=== PATIENT | male | born 1950 | race Caucasian/White ===

== ENCOUNTER 2017-11-15 15:14 | Inpatient (IN) ==
[2017-11-15] MEDS ORDERED: 0.9 % Sodium Chloride 500 ML IVC ONE (15:41)
[2017-11-15 16:16] LABS: Bilirubin,Urine Negative (Negative); Blood,Urine Trace-lysed (Negative); Clarity,Urine Clear (Clear); Color,Urine Yellow (Yellow); Glucose,Urine (UA) >=1000 mg/dL (Normal); Ketones,Urine 15 mg/dL (Negative); Leukocyte Esterase,Urine Negative (Negative); Nitrite,Urine Negative (Negative); PH,Urine 7.5 pH Units (5.0-8.0); Protein,Urine 100 mg/dL (Neg-Trace); Specific Gravity,Urine 1.015 (1.010-1.025); Urobilinogen,Urine Normal (Normal)
[2017-11-15] MEDS ORDERED: Insulin Regular, Human 100 UNIT/ML SQ ONE (16:20)
--- NOTE | 2017-11-15 16:20 | Emergency Department Note ---
Disposition Referrals: NONE,PCP [Primary Care Provider] - Fever HPI - General Chief Complaint: ED General Medical Stated Complaint: Diabetic emergency Time Seen by Provider: 11/15/17 15:26 Source: EMS Limitations: altered mental status, age - Related Data Home Medications Medication Instructions Recorded Confirmed Unable To Obtain [Unable to Obtain] 11/15/17 11/15/17 Allergies Allergy/AdvReac Type Severity Reaction Status Date / Time Unable to Assess Allergy Unverified 11/15/17 15:25 Fever PMH - Past Medical History Medical history: Reports: non-contributory Psychiatric history: Reports: other - Social History Smoking Status: Unknown if ever smoked Alcohol use: Reports: none, unknown Drug use: Reports: unknown Physical Exam - General Limitations: altered mental status, age General appearance: alert Course Vital Signs Temperature 98 F 11/15/17 15:17 Pulse Rate 118 11/15/17 15:17 Respiratory Rate 18 11/15/17 15:17 Blood Pressure 145/84 11/15/17 15:17 O2 Sat by Pulse Oximetry 97 11/15/17 15:17 Temperature 98 F 11/15/17 15:17 Pulse Rate 118 11/15/17 15:17 Respiratory Rate 18 11/15/17 15:17 Blood Pressure 145/84 11/15/17 15:17 O2 Sat by Pulse Oximetry 97 11/15/17 15:17 Oxygen Delivery Oxygen Delivery Room Air Fever - Lab Data Lab Results 11/15/17 11/15/17 11/15/17 Range/Units 15:29 15:30 16:00 POC Glucose 517 H* 528 H* (70-99) mg/dL Ur Drug Screen Interp See Below
--- NOTE | 2017-11-15 16:21 | Emergency Department Note ---
Disposition Clinical Impression: Hyperglycemia Cellulitis Qualifiers: Site of cellulitis: extremity Site of cellulitis of extremity: lower extremity Laterality: unspecified laterality Qualified Code(s): L03.119 - Cellulitis of unspecified part of limb Disposition: Admitted As Inpatient General Adult HPI - General Chief complaint: ED General Medical Stated complaint: Diabetic emergency Time Seen by Provider: 11/15/17 15:26 Source: patient, EMS Mode of arrival: EMS Limitations: no limitations Nursing Notes Reviewed: Yes Vital Signs Reviewed: Yes - History of Present Illness HPI Narrative: Patient presents to the ED via EMS for evaluation of hyperglycemia and altered mental status. Per EMS patient was pulled over by law enforcement for driving erratically and suspicion of reckless driving when he was found to be confused. EMS was called and he had a fingerstick glucose of 544. He was given an IV fluid bolus and brought to the ED. They report that he was only oriented to name. On arrival here patient tells me only that he feels "tired". He is a diabetic and has high blood pressure but is not currently on medication for either condition. He is oriented to name place and time. He denies any chest pain, shortness of breath, lightheadedness, dizziness, abdominal pain, nausea or vomiting. No fever or chills. His lower legs were noted to be red and warm which he states been going on for a few weeks. He has not seen anyone about this as he has no primary care doctor currently. He denies any drug use. On arrival here fingerstick glucose is 517. Pain Scale: 0 - Related Data Home Medications Medication Instructions Recorded Confirmed Unable To Obtain [Unable to Obtain] 11/15/17 11/15/17 Allergies Allergy/AdvReac Type Severity Reaction Status Date / Time No Known Allergies Allergy Verified 11/15/17 18:15 Constitutional: Denies: fever, chills, weakness, weight change Eyes: Denies: eye pain, eye discharge, vision change ENT ED: Denies: ear pain, throat pain, dental pain, hearing loss, epistaxis, congestion, dysphagia Cardiovascular: Denies: chest pain, palpitations, dyspnea on exertion, edema, syncope Respiratory: Denies: cough, dyspnea, wheezes, hemoptysis, stridor Gastrointestinal: Denies: abdominal pain, nausea, vomiting, diarrhea, constipation, hematemesis, melena, hematochezia Genitourinary: Denies: urgency, dysuria, frequency, hematuria Musculoskeletal: Denies: back pain, neck pain, arthralgia, myalgia Integumentary: Reports: as per HPI. Denies: rash, abrasion, lesions Neurological: Denies: headache, weakness, numbness, paresthesias, confusion, abnormal gait, vertigo Psychiatric: Denies: anxiety, depression, suicidal thoughts, homicidal thoughts , auditory hallucinations, visual hallucinations Endocrine: Denies: fatigue Hematological/Lymphatic: Denies: easy bleeding, easy bruising Allergic/Immunologic: Denies: facial swelling, urticaria Past Medical History - Past Medical History Medical history: Reports: non-contributory Psychiatric history: Reports: other - Social History Smoking Status: Unknown if ever smoked Smokeless Tobacco Status: No Alcohol use: Reports: none, unknown Drug use: Reports: unknown Physical Exam - General Limitations: no limitations General appearance: alert, in no apparent distress - Head Head exam: atraumatic, normocephalic, normal inspection - Eye Eye exam: Present: normal appearance, PERRL, EOMI - ENT ENT exam: normal exam, normal oropharynx, mucous membranes moist - Neck Neck exam: Present: normal inspection, full ROM, trachea midline - Chest Chest inspection: Present: normal inspection, symmetric chest wall rise - Respiratory Respiratory exam: Present: normal lung sounds bilaterally - Cardiovascular Cardiovascular exam: Present: regular rate, normal rhythm, normal heart sounds - Abdominal Exam Abdominal exam: Present: soft, Non-Tender. Absent: tenderness, distention, guarding, rebound, rigidity - Extremities Exam Extremities exam: Present: normal capillary refill, pedal edema (1-2+ bilaterally) - Expanded Lower Extremity Exam Knee exam: Present: normal inspection, full ROM Lower leg exam: Present: swelling, erythema (warmth and swelling bilaterally with areas of weeping). Absent: tenderness Ankle exam: Present: normal inspection, full ROM Foot/toe exam: Present: normal inspection, full ROM Neurovascular/Tendon exam: Absent: motor deficit, sensory deficit, tendon deficit - Back Exam Back exam: Present: normal inspection, full ROM. Absent: tenderness - Neurological Exam Neurological exam: Present: alert, oriented X3 - Psychiatric Psychiatric exam: Present: normal affect, normal mood - Skin Skin exam: Present: warm, dry, intact, normal color Course Course Narrative: Patient presents to the ED via EMS with report of hyperglycemia and altered mental status. On arrival here he is not altered but is hyperglycemic. Exam findings are concerning for bilateral extremity lower cellulitis. We will give IV fluids, insulin and obtain additional lab work. - Reevaluation(s) Reevaluation #1: Laboratory studies did not show evidence of DKA. Glucoses come down into the 300s with IV fluids and a small dose of insulin. He has been started on antibiotics. Discussed with him my concern for cellulitis and need for admission for better control of the infection as well as the blood pressure and diabetes and he is in agreement. Will contact the hospitalist. Reevaluation #2: Patient has been accepted by the hospitalist on-call, Dr. Garcia. Vital Signs Temperature 98 F 11/15/17 15:17 Pulse Rate 118 11/15/17 15:17 Respiratory Rate 18 11/15/17 15:17 Blood Pressure 145/84 11/15/17 15:17 O2 Sat by Pulse Oximetry 97 11/15/17 15:17 Temperature 98.6 F 11/16/17 04:26 Pulse Rate 95 11/16/17 04:26 Respiratory Rate 17 11/16/17 04:26 Blood Pressure 158/93 11/16/17 04:26 O2 Sat by Pulse Oximetry 92 11/16/17 04:26 Oxygen Delivery Oxygen Delivery Room Air Medical Decision Making - Medical Records Medical records reviewed: Yes I reviewed the patient's medical records. - Lab Data Lab results reviewed: Yes I reviewed the patient's lab results. Result diagrams: 11/15/17 16:10 11/15/17 16:10 Lab Results 11/15/17 11/15/17 11/15/17 Range/Units 15:29 15:30 15:57 WBC (4.3-11.1) K/mcL RBC (4.19-5.50) M/mcL Hgb (12.9-16.9) g/dL Hct (37.5-50.1) % MCV (83.0-100.0) fL MCH (28.0-33.3) pg MCHC (31.6-35.5) g/dL RDW (11.5-14.5) % Plt Count (140-400) K/mcL MPV (9.4-12.4) fL Immature Gran % (0-4) % Seg Neutrophils % % Lymphocytes % % Monocytes % % Eosinophils % % Basophils % % Neutrophils # (1.6-8.9) K/mcL Lymphocytes # (0.6-4.6) K/mcL Monocytes # (0.0-1.3) K/mcL Eosinophils # (0.0-0.6) K/mcL Basophils # (0.0-0.2) K/mcL VBG pH (7.32-7.42) pH Units VBG pCO2 (41-51) mmHg VBG pO2 (25-50) mmHg VBG HCO3 (21-27) mEq/L Sodium (136-145) mEq/L Potassium (3.5-5.1) mEq/L Chloride (98-107) mEq/L Carbon Dioxide (23-29) mEq/L BUN (8-23) mg/dL Creatinine (0.70-1.30) mg/dL Est GFR ( Amer) (> 60) Est GFR (Non-Af Amer) (> 60) BUN/Creatinine Ratio (6-26) Glucose (70-105) mg/dL POC Glucose 517 H* 528 H* (70-99) mg/dL Est Mean Plasma Glucose mg/dl Hemoglobin A1c ( - 5.6) % Calculated Osmolality (280-300) Lactic Acid (0.5-2.2) mmol/L Calcium (8.6-10.3) mg/dL Beta-Hydroxybutyric Acd (0.02-0.27) mmol/L Urine Color Yellow (Yellow) Urine Clarity Clear (Clear) Urine pH 7.5 (5.0-8.0) pH Units Ur Specific [place] 1.015 (1.010-1.025) Urine Protein 100 H (Neg-Trace) mg/dL Urine Glucose (UA) >=1000 H (Normal) mg/dL Urine Ketones 15 H (Negative) mg/dL Urine Blood Trace-lysed H (Negative) Urine Nitrite Negative (Negative) Urine Bilirubin Negative (Negative) Urine Urobilinogen Normal (Normal) mg/dL Ur Leukocyte Esterase Negative (Negative) Urine Microscopic RBC 3-5 H (0-3) per hpf Urine Microscopic WBC 0-3 (0-3) per hpf Ur Squamous Epith Cells Few (None-Few) per lpf Ur Culture Indicated? NO (NO) Urine Opiates Screen (Aedavc=586) ng/mL Ur Oxycodone Screen (Cutoff= 100) ng/mL Ur Barbiturates Screen (Trzlbq=232) ng/mL Ur Phencyclidine Scrn (Cutoff=25) ng/mL Ur Amphetamines Screen (Mcaiqe=0052) ng/mL U Benzodiazepines Scrn (Bezvsy=024) ng/mL Urine Cocaine Screen (Cutoff= 300) ng/mL U Marijuana (THC) Screen (Cutoff = 50) ng/mL Ur Drug Screen Interp 11/15/17 11/15/17 11/15/17 Range/Units 16:00 16:10 16:10 WBC 7.3 (4.3-11.1) K/mcL RBC 4.18 L (4.19-5.50) M/mcL Hgb 12.7 L (12.9-16.9) g/dL Hct 36.4 L (37.5-50.1) % MCV 87.1 (83.0-100.0) fL MCH 30.4 (28.0-33.3) pg MCHC 34.9 (31.6-35.5) g/dL RDW 11.5 (11.5-14.5) % Plt Count 205 (140-400) K/mcL MPV 11.2 (9.4-12.4) fL Immature Gran % 0.3 (0-4) % Seg Neutrophils % 80.7 % Lymphocytes % 7.5 % Monocytes % 8.2 % Eosinophils % 2.3 % Basophils % 1.0 % Neutrophils # 5.9 (1.6-8.9) K/mcL Lymphocytes # 0.6 (0.6-4.6) K/mcL Monocytes # 0.6 (0.0-1.3) K/mcL Eosinophils # 0.2 (0.0-0.6) K/mcL Basophils # 0.1 (0.0-0.2) K/mcL VBG pH (7.32-7.42) pH Units VBG pCO2 (41-51) mmHg VBG pO2 (25-50) mmHg VBG HCO3 (21-27) mEq/L Sodium 132 L (136-145) mEq/L Potassium 3.5 (3.5-5.1) mEq/L Chloride 98 (98-107) mEq/L Carbon Dioxide 27 (23-29) mEq/L BUN 22 (8-23) mg/dL Creatinine 1.04 (0.70-1.30) mg/dL Est GFR ( Amer) > 60 (> 60) Est GFR (Non-Af Amer) > 60 (> 60) BUN/Creatinine Ratio 21 (6-26) Glucose 539 H* (70-105) mg/dL POC Glucose (70-99) mg/dL Est Mean Plasma Glucose mg/dl Hemoglobin A1c ( - 5.6) % Calculated Osmolality 302 H (280-300) Lactic Acid (0.5-2.2) mmol/L Calcium 8.7 (8.6-10.3) mg/dL Beta-Hydroxybutyric Acd (0.02-0.27) mmol/L Urine Color (Yellow) Urine Clarity (Clear) Urine pH (5.0-8.0) pH Units Ur Specific [place] (1.010-1.025) Urine Protein (Neg-Trace) mg/dL Urine Glucose (UA) (Normal) mg/dL Urine Ketones (Negative) mg/dL Urine Blood (Negative) Urine Nitrite (Negative) Urine Bilirubin (Negative) Urine Urobilinogen (Normal) mg/dL Ur Leukocyte Esterase (Negative) Urine Microscopic RBC (0-3) per hpf Urine Microscopic WBC (0-3) per hpf Ur Squamous Epith Cells (None-Few) per lpf Ur Culture Indicated? (NO) Urine Opiates Screen Negative (Ouhtvi=546) ng/mL Ur Oxycodone Screen Negative (Cutoff= 100) ng/mL Ur Barbiturates Screen Negative (Fggjqy=442) ng/mL Ur Phencyclidine Scrn Negative (Cutoff=25) ng/mL Ur Amphetamines Screen Negative (Rbmglm=8461) ng/mL U Benzodiazepines Scrn Negative (Nwkwyg=671) ng/mL Urine Cocaine Screen Negative (Cutoff= 300) ng/mL U Marijuana (THC) Screen Negative (Cutoff = 50) ng/mL Ur Drug Screen Interp See Below 11/15/17 11/15/17 11/15/17 Range/Units 16:10 16:10 16:10 WBC (4.3-11.1) K/mcL RBC (4.19-5.50) M/mcL Hgb (12.9-16.9) g/dL Hct (37.5-50.1) % MCV (83.0-100.0) fL MCH (28.0-33.3) pg MCHC (31.6-35.5) g/dL RDW (11.5-14.5) % Plt Count (140-400) K/mcL MPV (9.4-12.4) fL Immature Gran % (0-4) % Seg Neutrophils % % Lymphocytes % % Monocytes % % Eosinophils % % Basophils % % Neutrophils # (1.6-8.9) K/mcL Lymphocytes # (0.6-4.6) K/mcL Monocytes # (0.0-1.3) K/mcL Eosinophils # (0.0-0.6) K/mcL Basophils # (0.0-0.2) K/mcL VBG pH (7.32-7.42) pH Units VBG pCO2 (41-51) mmHg VBG pO2 (25-50) mmHg VBG HCO3 (21-27) mEq/L Sodium (136-145) mEq/L Potassium (3.5-5.1) mEq/L Chloride (98-107) mEq/L Carbon Dioxide (23-29) mEq/L BUN (8-23) mg/dL Creatinine (0.70-1.30) mg/dL Est GFR ( Amer) (> 60) Est GFR (Non-Af Amer) (> 60) BUN/Creatinine Ratio (6-26) Glucose (70-105) mg/dL POC Glucose (70-99) mg/dL Est Mean Plasma Glucose 378 mg/dl Hemoglobin A1c 14.8 H ( - 5.6) % Calculated Osmolality (280-300) Lactic Acid 1.1 (0.5-2.2) mmol/L Calcium (8.6-10.3) mg/dL Beta-Hydroxybutyric Acd 0.77 H (0.02-0.27) mmol/L Urine Color (Yellow) Urine Clarity (Clear) Urine pH (5.0-8.0) pH Units Ur Specific [place] (1.010-1.025) Urine Protein (Neg-Trace) mg/dL Urine Glucose (UA) (Normal) mg/dL Urine Ketones (Negative) mg/dL Urine Blood (Negative) Urine Nitrite (Negative) Urine Bilirubin (Negative) Urine Urobilinogen (Normal) mg/dL Ur Leukocyte Esterase (Negative) Urine Microscopic RBC (0-3) per hpf Urine Microscopic WBC (0-3) per hpf Ur Squamous Epith Cells (None-Few) per lpf Ur Culture Indicated? (NO) Urine Opiates Screen (Dfmrzp=726) ng/mL Ur Oxycodone Screen (Cutoff= 100) ng/mL Ur Barbiturates Screen (Ncbuhp=556) ng/mL Ur Phencyclidine Scrn (Cutoff=25) ng/mL Ur Amphetamines Screen (Kpeirf=2108) ng/mL U Benzodiazepines Scrn (Qljfln=389) ng/mL Urine Cocaine Screen (Cutoff= 300) ng/mL U Marijuana (THC) Screen (Cutoff = 50) ng/mL Ur Drug Screen Interp 11/15/17 Range/Units 16:49 WBC (4.3-11.1) K/mcL RBC (4.19-5.50) M/mcL Hgb (12.9-16.9) g/dL Hct (37.5-50.1) % MCV (83.0-100.0) fL MCH (28.0-33.3) pg MCHC (31.6-35.5) g/dL RDW (11.5-14.5) % Plt Count (140-400) K/mcL MPV (9.4-12.4) fL Immature Gran % (0-4) % Seg Neutrophils % % Lymphocytes % % Monocytes % % Eosinophils % % Basophils % % Neutrophils # (1.6-8.9) K/mcL Lymphocytes # (0.6-4.6) K/mcL Monocytes # (0.0-1.3) K/mcL Eosinophils # (0.0-0.6) K/mcL Basophils # (0.0-0.2) K/mcL VBG pH 7.43 H (7.32-7.42) pH Units VBG pCO2 43 (41-51) mmHg VBG pO2 167 H (25-50) mmHg VBG HCO3 28 H (21-27) mEq/L Sodium (136-145) mEq/L Potassium (3.5-5.1) mEq/L Chloride (98-107) mEq/L Carbon Dioxide (23-29) mEq/L BUN (8-23) mg/dL Creatinine (0.70-1.30) mg/dL Est GFR ( Amer) (> 60) Est GFR (Non-Af Amer) (> 60) BUN/Creatinine Ratio (6-26) Glucose (70-105) mg/dL POC Glucose (70-99) mg/dL Est Mean Plasma Glucose mg/dl Hemoglobin A1c ( - 5.6) % Calculated Osmolality (280-300) Lactic Acid (0.5-2.2) mmol/L Calcium (8.6-10.3) mg/dL Beta-Hydroxybutyric Acd (0.02-0.27) mmol/L Urine Color (Yellow) Urine Clarity (Clear) Urine pH (5.0-8.0) pH Units Ur Specific [place] (1.010-1.025) Urine Protein (Neg-Trace) mg/dL Urine Glucose (UA) (Normal) mg/dL Urine Ketones (Negative) mg/dL Urine Blood (Negative) Urine Nitrite (Negative) Urine Bilirubin (Negative) Urine Urobilinogen (Normal) mg/dL Ur Leukocyte Esterase (Negative) Urine Microscopic RBC (0-3) per hpf Urine Microscopic WBC (0-3) per hpf Ur Squamous Epith Cells (None-Few) per lpf Ur Culture Indicated? (NO) Urine Opiates Screen (Mvsgrx=176) ng/mL Ur Oxycodone Screen (Cutoff= 100) ng/mL Ur Barbiturates Screen (Stdtnd=005) ng/mL Ur Phencyclidine Scrn (Cutoff=25) ng/mL Ur Amphetamines Screen (Rkhnka=7554) ng/mL U Benzodiazepines Scrn (Uikpus=085) ng/mL Urine Cocaine Screen (Cutoff= 300) ng/mL U Marijuana (THC) Screen (Cutoff = 50) ng/mL Ur Drug Screen Interp
[2017-11-15 16:24] LABS: Basophils # 0.1 K/mcL (0.0-0.2); Eosinophils # 0.2 K/mcL (0.0-0.6); Eosinophils % 2.3 %; Hematocrit 36.4 % (37.5-50.1); Hemoglobin 12.7 g/dL (12.9-16.9); Immature Granulocytes % 0.3 % (0-4); Lymphocytes # 0.6 K/mcL (0.6-4.6); Lymphocytes % 7.5 %; Mean Corpuscular HGB Conc 34.9 g/dL (31.6-35.5); Mean Corpuscular Hemoglobin 30.4 pg (28.0-33.3); Mean Corpuscular Volume 87.1 fL (83.0-100.0); Mean Platelet Volume 11.2 fL (9.4-12.4); Monocytes # 0.6 K/mcL (0.0-1.3); Monocytes % 8.2 %; Neutrophils # 5.9 K/mcL (1.6-8.9); Platelet Count 205 K/mcL (140-400); Red Blood Count 4.18 M/mcL (4.19-5.50); Red Cell Distribution Width 11.5 % (11.5-14.5); Segmented Neutrophils % 80.7 %
[2017-11-15 16:25] LABS: Squamous Epithelial Cell,Urine Few per lpf (None-Few); WBC,Urine 0-3 per hpf (0-3)
[2017-11-15 16:31] LABS: Amphetamine Screen,Urine Negative ng/mL (Cutoff=1000); Barbiturate Screen,Urine Negative ng/mL (Cutoff=200); Benzodiazepines Screen,Urine Negative ng/mL (Cutoff=200); Cannabinoid Screen,Urine Negative ng/mL (Cutoff = 50); Cocaine Screen,Urine Negative ng/mL (Cutoff= 300); Opiate Screen,Urine Negative ng/mL (Cutoff=300); Phencyclidine Screen,Urine Negative ng/mL (Cutoff=25)
[2017-11-15] MEDS: 0.9 % Sodium Chloride 1,000 ML IVC ONE ×2 (16:36→19:52)
[2017-11-15 16:43] LABS: BUN/Creatinine Ratio 21 (6-26); Blood Urea Nitrogen 22 mg/dL (8-23); Calcium 8.7 mg/dL (8.6-10.3); Carbon Dioxide 27 mEq/L (23-29); Chloride 98 mEq/L (98-107); Glucose 539 mg/dL (70-105); Osmolality,Calculated 302 (280-300); Potassium 3.5 mEq/L (3.5-5.1); Sodium 132 mEq/L (136-145); eGFR For Non-African Americans > 60 (> 60)
[2017-11-15 16:53] LABS: VBG HCO3 28 mEq/L (21-27); VBG PCO2 43 mmHg (41-51); VBG PH 7.43 pH Units (7.32-7.42); VBG PO2 167 mmHg (25-50)
[2017-11-15] MEDS ORDERED: Clindamycin 600 MG/50 ML 600 MG/50 ML IV.SOLN IVPB ONE (18:00)
[2017-11-15] MEDS ORDERED: Naloxone 0.4 MG/ML INJ IVP PRN (18:20)
[2017-11-15] MEDS ORDERED: Dextrose Gel 15 GM/37.5 ML TUBE PO PRN ×2 (18:23)
[2017-11-15] MEDS ORDERED: D5% in Water 1,000 ML IVC PRN (18:23)
[2017-11-15] MEDS ORDERED: *HR* Dextrose 50 % in Water (Syg) 50 ML SYRINGE IVP PRN (18:23)
[2017-11-15] MEDS: 0.9 % Sodium Chloride 1,000 ML IVC SCH (20:30)
[2017-11-15] MEDS ORDERED: Insulin LISPRO 300 UNITS/3 ML VIAL SQ SCH (21:00)
[2017-11-15 23:22] LABS: Estimated Average Glucose 378 mg/dl; Hemoglobin A1C 14.8 %
[2017-11-16] MEDS ORDERED: hydrALAZINE 10 MG TABLET PO SCH
[2017-11-16] MEDS ORDERED: 0.9 % Sodium Chloride 1,000 ML IVC SCH (03:30)
[2017-11-16] MEDS ORDERED: Naloxone 0.4 MG/ML INJ IVP PRN (03:30)
[2017-11-16] MEDS ORDERED: D5% in Water 1,000 ML IVC PRN (03:30)
[2017-11-16] MEDS ORDERED: *HR* Dextrose 50 % in Water (Syg) 50 ML SYRINGE IVP PRN (03:30)
[2017-11-16] MEDS ORDERED: Dextrose Gel 15 GM/37.5 ML TUBE PO PRN ×2 (03:30)
[2017-11-16] MEDS ORDERED: Insulin LISPRO 300 UNITS/3 ML VIAL SQ SCH (07:30)
[2017-11-16] MEDS: Insulin LISPRO 300 UNITS/3 ML VIAL SQ SCH ×4 (08:10→20:48)
[2017-11-16] MEDS: hydrALAZINE 10 MG TABLET PO SCH ×4 (08:10→23:32)
--- NOTE | 2017-11-16 10:23 | Internal Med History&Physical ---
Date of Encounter: 11/16/17 Time of Encounter: 09:45 Assessment and Plan (1) Cellulitis Current visit: Yes Status: Acute He will be started on IV Ancef with lactobacillus. Qualifiers: Site of cellulitis: extremity Site of cellulitis of extremity: lower extremity Laterality: unspecified laterality Qualified Code(s): L03.119 - Cellulitis of unspecified part of limb (2) DM type 2 (diabetes mellitus, type 2) Current visit: Yes Status: Chronic Poorly controlled. Hemoglobin A1c returned elevated at 14.8%. He will be started on Amaryl and metformin. Accu-Cheks with SSI have been ordered. Qualifiers: Diabetes mellitus mcc insulin use: without mcc use Diabetes mellitus complication status: without complication Qualified Code(s): E11.9 - Type 2 diabetes mellitus without complications (3) Anemia Current visit: Yes Status: Acute Duration unknown. Anemia testing will be done. Qualifiers: Anemia type: unspecified type Qualified Code(s): D64.9 - Anemia, unspecified (4) Hypertension Current visit: Yes Status: Chronic Significant fluctuation in blood pressure since admission but overall above desirable range. Start lisinopril. Qualifiers: Hypertension type: essential hypertension Qualified Code(s): I10 - Essential (primary) hypertension (5) Edema Current visit: Yes Status: Acute IV Lasix has been ordered. BN peptide will be checked. Qualifiers: Edema type: unspecified Qualified Code(s): R60.9 - Edema, unspecified Internal Medicine - H&P: HPI Chief complaint: Elevated blood sugar Admitted From: Emergency Dept Plans for Post Hospital Care: Home History of present illness: Mr. Mcconnell is a 67 year old male who was brought to emergency room by squad after he was stopped by police for erratic driving. The police called EMS who found his blood sugar over 500 mg percent. He appeared slightly confused. He was evaluated in emergency room found to have left shift on WBC differential, severe hyperglycemia, and bilateral leg cellulitis. He was admitted to [facility] floor for ongoing care needs. He reports he was diagnosed with DM 2 approximately 10 years ago. He does not check his blood sugars regularly at home. He has not seen a physician in over a year since his PCP retired and the medical office closed. He does not take any medications. Endocrine history is negative for thyroid disease or hyperlipidemia. He states he is the process of moving from his home [facility] to the [facility]. Past Med Surg Social Fam HX - Past Medical History Medical history: non-contributory Psychiatric history: other - Social History Smoking Status: Unknown if ever smoked Smokeless Tobacco Status: No Alcohol use: none, unknown Drug use: unknown Internal Medicine - H&P: Meds Unable To Obtain [Unable to Obtain] 11/15/17 [History] 3 Allergy/AdvReac Type Severity Reaction Status Date / Time No Known Allergies Allergy Verified 11/15/17 18:15 All Systems PM: A 10-system review of systems was performed and is negative for pertinent findings except as documented above in the HPI. Review of systems: Gen.: He states his weight has been stable for several months Cardiovascular: He has history of hypertension. He denies HI heart failure angina DVT or pulmonary embolus Respiratory: He is a lifelong nonsmoker and denies chronic lung disease GI: He denies disorders of his liver gallbladder or exocrine pancreas : He denies hematuria dysuria or kidney stones Neurologic: He denies large distribution strokes or seizures. Endocrine: As per history of present illness Hematology/oncology: He denies blood disorders or cancers. He was unaware he had anemia on labs in emergency room. Psychiatric: He denies anxiety depression or other mental health issues [place] skeletal: He has DJD. He had right tibial fracture April 2012. He has had remote left fourth finger distal phalanx amputation. - Constitutional Vitals: Temp Pulse Resp BP Pulse Ox 98.3 F 99 18 164/90 93 11/16/17 06:51 11/16/17 06:51 11/16/17 06:51 11/16/17 06:51 11/16/17 06:51 Exam: Gen.: He is a well-developed well-nourished males who appears in no acute distress at present time HEENT: Head is atraumatic and normocephalic. Eyes: EOMI. There is no scleral icterus. Mouth: Mucosa is moist. Neck: Supple and nontender. There is no thyromegaly or adenopathy noted. Heart: Regular with rate approximately 100/m. No murmurs or gallops heard. Lungs: No wheezes or crackles are heard. Abdomen: Soft and nontender. No masses or guarding are noted. Extremities: He has a shallow ulcerative area on his posterior lower lobe left leg measuring approximately 8 cm maximum diameter. He has very few smaller fluid-filled vesicles on the left leg. There is diffuse erythema without well- defined borders of the lower legs. Dorsalis pedis and posttibial pulses are trace palpable. He has trace to 1+ pitting edema the lower legs. Neurologic: Mental status: He is talkative and seems to be reliable historian. Cranial nerves: Smile is symmetric. Forehead wrinkles bilaterally. Tongue protrudes midline. EOMI. Motor: There is no pronator drift. Cerebellar: Finger to nose is intact bilaterally. Skin: Warm and dry Internal Med - H&P Results - Labs CBC & Chem 7: 11/15/17 16:10 11/15/17 16:10 - VTE Reasons for not Prescribing Prophylaxis: Treatment not Indicated - Low risk for VTE
[2017-11-16] MEDS: Furosemide 40 MG/4 ML VIAL IVP SCH (12:16)
[2017-11-16] MEDS: *HR* Glimepiride 2 MG TABLET PO SCH (12:16)
[2017-11-16] MEDS: *HR* Metformin 500 MG TABLET PO SCH ×2 (12:16→17:20)
[2017-11-16] MEDS: Silver Sulfadiazine 50 GM TUBE TP SCH (12:35)
[2017-11-16] MEDS: ceFAZolin 1,000 MG in Water for inj. (sterile) 20 ML 10 ML IVP SCH (17:19)
[2017-11-16] MEDS: Lactobacillus 1 EACH CAP.SPRINK PO SCH (20:47)
[2017-11-17] MEDS: ceFAZolin 1,000 MG in Water for inj. (sterile) 20 ML 10 ML IVP SCH ×3 (01:34→17:47)
[2017-11-17 05:49] LABS: Basophils # 0.1 K/mcL (0.0-0.2); Basophils % 0.9 %; Eosinophils # 0.3 K/mcL (0.0-0.6); Eosinophils % 4.1 %; Hematocrit 35.1 % (37.5-50.1); Immature Granulocytes % 0.3 % (0-4); Lymphocytes % 15.4 %; Mean Corpuscular HGB Conc 34.2 g/dL (31.6-35.5); Mean Corpuscular Hemoglobin 30.6 pg (28.0-33.3); Mean Corpuscular Volume 89.5 fL (83.0-100.0); Mean Platelet Volume 10.9 fL (9.4-12.4); Monocytes # 0.5 K/mcL (0.0-1.3); Neutrophils # 4.6 K/mcL (1.6-8.9); Platelet Count 210 K/mcL (140-400); Red Blood Count 3.92 M/mcL (4.19-5.50); Red Cell Distribution Width 11.6 % (11.5-14.5); Segmented Neutrophils % 71.3 %
[2017-11-17] MEDS: hydrALAZINE 10 MG TABLET PO SCH (05:52)
[2017-11-17] MEDS: *HR* Enoxaparin 40 MG/0.4 ML SYRINGE SQ SCH (05:52)
[2017-11-17 06:19] LABS: Alanine Aminotransferase 12 Units/L (7-52); Albumin 2.6 g/dL (3.5-5.7); Albumin/Globulin Ratio 0.9 (1.1-2.2); Alkaline Phosphatase 69 Units/L (34-104); Aspartate Amino Transferase 13 Units/L (13-39); BUN/Creatinine Ratio 15 (6-26); Bilirubin,Total 0.4 mg/dL (0.3-1.0); Blood Urea Nitrogen 14 mg/dL (8-23); Calcium 8.5 mg/dL (8.6-10.3); Carbon Dioxide 27 mEq/L (23-29); Chloride 103 mEq/L (98-107); Chol/HDL Ratio 3.9 (0-4.9); Cholesterol 140 mg/dL (< 200); Glucose 401 mg/dL (70-105); HDL Cholesterol 36 mg/dL (40-59); LDL Cholesterol,Calculated 70 mg/dL (0-99); Osmolality,Calculated 299 (280-300); Potassium 3.9 mEq/L (3.5-5.1); Sodium 136 mEq/L (136-145); Total Protein 5.6 g/dL (6.4-8.9); Triglycerides 168 mg/dL (< 150); eGFR For Non-African Americans > 60 (> 60)
[2017-11-17] MEDS: *HR* Metformin 500 MG TABLET PO SCH ×2 (08:34→17:49)
[2017-11-17] MEDS: Silver Sulfadiazine 50 GM TUBE TP SCH (08:34)
[2017-11-17] MEDS: Lactobacillus 1 EACH CAP.SPRINK PO SCH ×2 (08:35→20:58)
[2017-11-17] MEDS: *HR* Glimepiride 2 MG TABLET PO SCH (08:35)
[2017-11-17] MEDS: Insulin LISPRO 300 UNITS/3 ML VIAL SQ SCH ×4 (08:35→20:59)
[2017-11-17] MEDS: Furosemide 40 MG/4 ML VIAL IVP SCH (08:37)
[2017-11-17 09:28] LABS: % Iron Saturation 12 % (20-55); Iron 37 mcg/dL (65-175); Transferrin 228 mg/dL (203-362)
[2017-11-17 09:36] LABS: Ferritin 15 ng/mL (20-250)
[2017-11-17 09:40] LABS: Folate 21.7 ng/mL (3.0-16.0)
[2017-11-17] MEDS ORDERED: Lisinopril 20 MG TABLET PO ONE (09:49)
--- NOTE | 2017-11-17 11:34 | Internal Med Progress Note ---
Date of Encounter: 11/17/17 Time of Encounter: 11:25 - Assessment and plan (1) Cellulitis Current Visit: Yes Status: Acute Assessment and plan: November 17. Continue IV Ancef with lactobacillus. Qualifiers: Site of cellulitis: extremity Site of cellulitis of extremity: lower extremity Laterality: unspecified laterality Qualified Code(s): L03.119 - Cellulitis of unspecified part of limb (2) DM type 2 (diabetes mellitus, type 2) Current Visit: Yes Status: Chronic Assessment and plan: November 17. Hemoglobin A1c elevated at 14.8% on admission. Continue Amaryl and metformin with Accu-Cheks and SSI. Qualifiers: Diabetes mellitus long-term insulin use: without long-term use Diabetes mellitus complication status: without complication Qualified Code(s): E11.9 - Type 2 diabetes mellitus without complications (3) Anemia Current Visit: Yes Status: Acute Assessment and plan: November 17. Anemia testing showed iron 37, transferrin saturation 12%, transferrin 228, ferritin 15, and folate 21.7. B12 level is pending. Start ferrous sulfate with vitamin C in a.m. Qualifiers: Anemia type: unspecified type Qualified Code(s): D64.9 - Anemia, unspecified (4) Hypertension Current Visit: Yes Status: Chronic Assessment and plan: November 17. Blood pressure inadequately controlled. Increase lisinopril and start metoprolol. Discontinue hydralazine. Qualifiers: Hypertension type: essential hypertension Qualified Code(s): I10 - Essential (primary) hypertension (5) Edema Current Visit: Yes Status: Acute Assessment and plan: November 17. Continue IV furosemide. Qualifiers: Edema type: unspecified Qualified Code(s): R60.9 - Edema, unspecified - Subjective Interval history: November 17. He has no new complaints and feels better. - Constitutional Vitals: Temp Pulse Resp BP Pulse Ox 98.7 F 107 16 165/89 94 11/17/17 07:07 11/17/17 07:07 11/17/17 07:07 11/17/17 07:07 11/17/17 07:07 Exam: He is resting comfortably in bed and appears in no acute distress. His affect is bright and cheerful. The erythema intensity and edema have slightly decreased in his legs. Left lower leg is wrapped in gauze. I reviewed his medications and lab results. Internal Medicine: Result - Labs CBC & Chem 7: 11/17/17 05:30 11/17/17 05:30 Labs: Short CBC 11/17/17 Range/Units 05:30 WBC 6.4 (4.3-11.1) K/mcL Hgb 12.0 L (12.9-16.9) g/dL Hct 35.1 L (37.5-50.1) % Plt Count 210 (140-400) K/mcL Neutrophils # 4.6 (1.6-8.9) K/mcL BMP 11/17/17 05:30 Sodium 136 Potassium 3.9 Chloride 103 Carbon Dioxide 27 BUN 14 Creatinine 0.92 Glucose 401 H Calcium 8.5 L Liver Function 11/17/17 Range/Units 05:30 Total Bilirubin 0.4 (0.3-1.0) mg/dL AST 13 (13-39) Units/L ALT 12 (7-52) Units/L Alkaline Phosphatase 69 (34-104) Units/L Albumin 2.6 L (3.5-5.7) g/dL - VTE Reasons for not Prescribing Prophylaxis: Treatment not Indicated - Low risk for VTE Consult Discharge Plan - Plan Referrals: NONE,PCP [Primary Care Provider] - 1 week
[2017-11-17 12:28] LABS: Thyroid Stimulating Hormone 1.549 mcIU/mL (0.340-5.600)
[2017-11-17] MEDS: Metoprolol XL (24 HR) Succ 25 MG TAB.ER.24H PO SCH (12:50)
[2017-11-18] MEDS: ceFAZolin 1,000 MG in Water for inj. (sterile) 20 ML 10 ML IVP SCH ×4 (01:09→23:54)
[2017-11-18 05:07] LABS: Basophils # 0.1 K/mcL (0.0-0.2); Basophils % 0.9 %; Eosinophils # 0.3 K/mcL (0.0-0.6); Eosinophils % 5.8 %; Hematocrit 36.3 % (37.5-50.1); Hemoglobin 12.4 g/dL (12.9-16.9); Immature Granulocytes % 0.2 % (0-4); Lymphocytes % 18.5 %; Mean Corpuscular HGB Conc 34.2 g/dL (31.6-35.5); Mean Corpuscular Hemoglobin 30.4 pg (28.0-33.3); Mean Platelet Volume 10.8 fL (9.4-12.4); Monocytes # 0.6 K/mcL (0.0-1.3); Monocytes % 10.5 %; Neutrophils # 3.5 K/mcL (1.6-8.9); Platelet Count 223 K/mcL (140-400); Red Blood Count 4.08 M/mcL (4.19-5.50); Red Cell Distribution Width 11.5 % (11.5-14.5); Segmented Neutrophils % 64.1 %
[2017-11-18 05:33] LABS: BUN/Creatinine Ratio 16 (6-26); Blood Urea Nitrogen 15 mg/dL (8-23); Calcium 9.1 mg/dL (8.6-10.3); Carbon Dioxide 29 mEq/L (23-29); Chloride 103 mEq/L (98-107); Glucose 368 mg/dL (70-105); Osmolality,Calculated 302 (280-300); Potassium 3.8 mEq/L (3.5-5.1); Sodium 138 mEq/L (136-145); eGFR For Non-African Americans > 60 (> 60)
[2017-11-18] MEDS: Ascorbic Acid 500 MG TABLET PO SCH (06:01)
[2017-11-18] MEDS: *HR* Enoxaparin 40 MG/0.4 ML SYRINGE SQ SCH (06:01)
[2017-11-18] MEDS: 0.9 % Sodium Chloride 1,000 ML IVC SCH (07:43)
[2017-11-18] MEDS: Metoprolol XL (24 HR) Succ 25 MG TAB.ER.24H PO SCH (08:43)
[2017-11-18] MEDS: *HR* Metformin 500 MG TABLET PO SCH ×2 (08:43→18:00)
[2017-11-18] MEDS: Lactobacillus 1 EACH CAP.SPRINK PO SCH ×2 (08:43→20:28)
[2017-11-18] MEDS: *HR* Glimepiride 2 MG TABLET PO SCH ×2 (08:43→11:17)
[2017-11-18] MEDS: Lisinopril 20 MG TABLET PO SCH (08:43)
[2017-11-18] MEDS: Furosemide 40 MG/4 ML VIAL IVP SCH (08:44)
[2017-11-18] MEDS: Insulin LISPRO 300 UNITS/3 ML VIAL SQ SCH ×4 (08:45→20:33)
--- NOTE | 2017-11-18 10:26 | Internal Med Progress Note ---
Date of Encounter: 11/18/17 Time of Encounter: 10:18 - Assessment and plan (1) Cellulitis Current Visit: Yes Status: Acute Assessment and plan: November 17. Continue IV Ancef with lactobacillus. November 18. Continue IV Ancef with lactobacillus. Hopefully stable for discharge 11/20/2017 on oral antibiotics. Qualifiers: Site of cellulitis: extremity Site of cellulitis of extremity: lower extremity Laterality: unspecified laterality Qualified Code(s): L03.119 - Cellulitis of unspecified part of limb (2) DM type 2 (diabetes mellitus, type 2) Current Visit: Yes Status: Chronic Assessment and plan: November 17. Hemoglobin A1c elevated at 14.8% on admission. Continue Amaryl and metformin with Accu-Cheks and SSI. November 18. Blood sugars inadequately controlled. Will increase metformin and Amaryl. Qualifiers: Diabetes mellitus fpc insulin use: without long chain beamer use Diabetes mellitus complication status: without complication Qualified Code(s): E11.9 - Type 2 diabetes mellitus without complications (3) Anemia Current Visit: Yes Status: Acute Assessment and plan: November 17. Anemia testing showed iron 37, transferrin saturation 12%, transferrin 228, ferritin 15, and folate 21.7. B12 level is pending. Start ferrous sulfate with vitamin C in a.m. November 18. B12 level normal at 518. Continue ferrous sulfate with vitamin C. Qualifiers: Anemia type: unspecified type Qualified Code(s): D64.9 - Anemia, unspecified (4) Hypertension Current Visit: Yes Status: Chronic Assessment and plan: November 17. Blood pressure inadequately controlled. Increase lisinopril and start metoprolol. Discontinue hydralazine. November 18. Continue lisinopril and metoprolol. Qualifiers: Hypertension type: essential hypertension Qualified Code(s): I10 - Essential (primary) hypertension (5) Edema Current Visit: Yes Status: Acute Assessment and plan: November 17. Continue IV furosemide. Qualifiers: Edema type: unspecified Qualified Code(s): R60.9 - Edema, unspecified - Subjective Interval history: November 17. He has no new complaints and feels better. November 18. He has no new complaints. - Constitutional Vitals: Temp Pulse Resp BP Pulse Ox 99.4 F 98 16 171/100 95 11/18/17 07:42 11/18/17 07:42 11/18/17 07:42 11/18/17 07:42 11/18/17 07:42 Exam: He is resting comfortably in bed and appears in no acute distress. His heart is regular approximately 88/m. Lungs are clear anteriorly. Extremities show improvement with decreased erythema and edema. I reviewed his medications, vitals, and lab results. Internal Medicine: Result - Labs CBC & Chem 7: 11/18/17 04:47 11/18/17 04:47 Labs: Short CBC 11/18/17 Range/Units 04:47 WBC 5.5 (4.3-11.1) K/mcL Hgb 12.4 L (12.9-16.9) g/dL Hct 36.3 L (37.5-50.1) % Plt Count 223 (140-400) K/mcL Neutrophils # 3.5 (1.6-8.9) K/mcL BMP 11/18/17 04:47 Sodium 138 Potassium 3.8 Chloride 103 Carbon Dioxide 29 BUN 15 Creatinine 0.93 Glucose 368 H Calcium 9.1 - VTE Reasons for not Prescribing Prophylaxis: Treatment not Indicated - Low risk for VTE Documentation of Mechanical Device: Intermittent pneumatic compression device Consult Discharge Plan - Plan Referrals: NONE,PCP [Primary Care Provider] - 1 week
[2017-11-18] MEDS: Silver Sulfadiazine 50 GM TUBE TP SCH (11:17)
[2017-11-19] MEDS: *HR* Enoxaparin 40 MG/0.4 ML SYRINGE SQ SCH (06:26)
[2017-11-19] MEDS: Ascorbic Acid 500 MG TABLET PO SCH (06:26)
[2017-11-19] MEDS: *HR* Glimepiride 2 MG TABLET PO SCH ×2 (08:29→10:13)
[2017-11-19] MEDS: Metoprolol XL (24 HR) Succ 50 MG TAB.ER.24H PO SCH (08:29)
[2017-11-19] MEDS: Lactobacillus 1 EACH CAP.SPRINK PO SCH ×2 (08:30→21:27)
[2017-11-19] MEDS: Lisinopril 20 MG TABLET PO SCH (08:30)
[2017-11-19] MEDS: *HR* Metformin 500 MG TABLET PO SCH ×2 (08:30→16:40)
[2017-11-19] MEDS: Insulin LISPRO 300 UNITS/3 ML VIAL SQ SCH ×4 (08:33→21:28)
[2017-11-19] MEDS: Furosemide 40 MG/4 ML VIAL IVP SCH (08:37)
[2017-11-19] MEDS: ceFAZolin 1,000 MG in Water for inj. (sterile) 20 ML 10 ML IVP SCH ×2 (08:44→16:41)
--- NOTE | 2017-11-19 09:40 | Internal Med Progress Note ---
Date of Encounter: 11/19/17 Time of Encounter: 09:38 - Assessment and plan (1) Cellulitis Current Visit: Yes Status: Acute Assessment and plan: Resolving. Will continue IV antibiotic regimen for now. It appears reasonable to d/c pt to ECF tomorrow on oral antibiotic regimen. Qualifiers: Site of cellulitis: extremity Site of cellulitis of extremity: lower extremity Laterality: unspecified laterality Qualified Code(s): L03.119 - Cellulitis of unspecified part of limb (2) DM type 2 (diabetes mellitus, type 2) Current Visit: Yes Status: Chronic Assessment and plan: Severely uncontrolled. Will increase JEAN BAPTISTE dose further. Pt would benefit from close outpatient management of his uncontrolled diabetes mellitus. He likely will need at least basal insulin to control his diabetes long-term. Qualifiers: Diabetes mellitus senior living insulin use: without information resources manager use Diabetes mellitus complication status: without complication Qualified Code(s): E11.9 - Type 2 diabetes mellitus without complications (3) Anemia Current Visit: Yes Status: Acute Assessment and plan: Mild. Stable. Pt has been initiated on oral iron. Qualifiers: Anemia type: unspecified type Qualified Code(s): D64.9 - Anemia, unspecified (4) Hypertension Current Visit: Yes Status: Chronic Assessment and plan: Uncontrolled. Will increase CORBIN-inh. Qualifiers: Hypertension type: essential hypertension Qualified Code(s): I10 - Essential (primary) hypertension - Time Spent With Patient 25 - 35 minutes - Constitutional Vitals: Temp Pulse Resp BP Pulse Ox 98.2 F 97 16 157/97 91 11/19/17 07:02 11/19/17 07:02 11/19/17 07:02 11/19/17 07:02 11/19/17 07:02 Exam: Gen: Lying in bed, NAD HEENT: NC, AT Neck: Trachea midline, no mass Pulm: No respiratory distress, CTAB CV: Normal S1 and S2, RRR Abdomen: Soft, ND, NT Ext: No C/C/E Neuro: No appreciable motor/sensor deficits Skin: Warm and dry, mild erythema and warmth involving bilateral lower extremities from ankle to mid tibia, no crepitus, no induration Psych: A&Ox3 Internal Medicine: Result - Labs CBC & Chem 7: 11/18/17 04:47 11/18/17 04:47 - VTE Reasons for not Prescribing Prophylaxis: Treatment not Indicated - Low risk for VTE Documentation of Mechanical Device: Graduated compression elastic hosiery Consult Discharge Plan - Plan Referrals: NONE,PCP [Primary Care Provider] - 1 week
[2017-11-19] MEDS: Silver Sulfadiazine 50 GM TUBE TP SCH (12:34)
[2017-11-20] MEDS: *HR* Enoxaparin 40 MG/0.4 ML SYRINGE SQ SCH (06:37)
[2017-11-20] MEDS: Ascorbic Acid 500 MG TABLET PO SCH (06:37)
[2017-11-20] MEDS: Furosemide 40 MG/4 ML VIAL IVP SCH (08:07)
[2017-11-20] MEDS: Insulin LISPRO 300 UNITS/3 ML VIAL SQ SCH ×2 (08:07→11:52)
[2017-11-20] MEDS: Lactobacillus 1 EACH CAP.SPRINK PO SCH (08:09)
[2017-11-20] MEDS: *HR* Glimepiride 2 MG TABLET PO SCH (08:09)
[2017-11-20] MEDS: *HR* Metformin 500 MG TABLET PO SCH ×2 (08:09→16:23)
[2017-11-20] MEDS: Metoprolol XL (24 HR) Succ 50 MG TAB.ER.24H PO SCH (08:10)
[2017-11-20] MEDS: Silver Sulfadiazine 50 GM TUBE TP SCH (08:10)
[2017-11-20] MEDS ORDERED: Lisinopril 20 MG TABLET PO SCH (09:00)
[2017-11-20] MEDS: ceFAZolin 1,000 MG in Water for inj. (sterile) 20 ML 10 ML IVP SCH ×3 (09:33→16:22)
[2017-11-20 14:15] VITALS: BP 160/95
--- NOTE | 2017-11-20 14:43 | Discharge Summary ---
Date of Encounter: 11/20/17 Time of Encounter: 14:15 - Discharge Diagnosis (1) Cellulitis Priority: Primary Status: Acute Qualifiers: Site of cellulitis: extremity Site of cellulitis of extremity: lower extremity Laterality: unspecified laterality Qualified Code(s): L03.119 - Cellulitis of unspecified part of limb (2) DM type 2 (diabetes mellitus, type 2) Priority: Secondary Status: Chronic Qualifiers: Diabetes mellitus bed bug exterminator insulin use: without long-term use Diabetes mellitus complication status: without complication Qualified Code(s): E11.9 - Type 2 diabetes mellitus without complications (3) Anemia Priority: Secondary Status: Acute Qualifiers: Anemia type: iron deficiency Iron deficiency anemia type: unspecified iron deficiency Qualified Code(s): D50.9 - Iron deficiency anemia, unspecified (4) Hypertension Priority: Secondary Status: Chronic Qualifiers: Hypertension type: essential hypertension Qualified Code(s): I10 - Essential (primary) hypertension (5) Edema Priority: Secondary Status: Acute Qualifiers: Edema type: unspecified Qualified Code(s): R60.9 - Edema, unspecified Hospital course: Mr. Mcconnell is a 67 year old male who was brought to emergency room by squad after he was stopped by police for erratic driving. The police called EMS who found his blood sugar over 500 mg percent. He appeared slightly confused. He was evaluated in emergency room and was found to have left shift on WBC differential, severe hyperglycemia, and bilateral leg cellulitis. He was admitted to [facility] floor for ongoing care needs. Initial orders were written by the emergency room physician. I saw him on November 16 and performed a history and physical. He was started on IV Ancef with lactobacillus. Topical Silvadene was applied also. There was gradual improvement in cellulitis. He will continue with antibiotic and probiotic for 5 additional days at discharge. Silvadene will not be continued at this time. He was started on Amaryl and metformin with increasing doses during hospital stay. Blood sugars were still inadequately controlled so Actos will be added at discharge. He will be on diabetic diet. Blood sugars can be monitored at the SNF and additional medication started by his PCP there. Anemia testing showed iron 37, transferrin saturation 12%, transferrin 228, ferritin 15, B12 518, and folate 21.7. He was started on ferrous sulfate with vitamin C. Lipid profile showed total cholesterol 140, LDL 70, HDL 36, triglycerides 168, and total/HDL ratio of 3.9. He was started on lisinopril for blood pressure with dose increased to 40 mg daily by day of discharge. He was given IV Lasix during hospital stay with supplemental potassium. Edema lessened. He will continue oral Bumex at discharge. On November 20 arrangements were made for him to be discharged to [facility] for ongoing care needs - Time Spent with Patient Total time spent providing and/or coordinating discharge services: - Discharge Medications Prescriptions: Bumetanide [Bumex] 1 mg PO DAILY 365 Days tablet cephALEXin [Keflex] 500 mg PO Q8H 5 Days capsule Glimepiride [Amaryl] 8 mg PO DAILY 365 Days tablet Pioglitazone [Actos] 15 mg PO 0800 365 Days tablet Home Medications: Ascorbic Acid [Vitamin C] 500 mg PO 0630 30 Days tablet 11/20/17 [Rx] Bumetanide [Bumex] 1 mg PO DAILY 365 Days tablet 11/20/17 [Rx] Ferrous Sulfate 325 mg PO 0630 30 Days tablet 11/20/17 [Rx] Glimepiride [Amaryl] 8 mg PO DAILY 365 Days tablet 11/20/17 [Rx] Lactobacillus [Culturelle] 1 each PO BID 5 Days cap.sprink 11/20/17 [Rx] Lisinopril [Zestril] 40 mg PO DAILY tablet 11/20/17 [Rx] Metoprolol XL (24 HR) Succ [Toprol Xl] 50 mg PO DAILY tab.er.24h 11/20/17 [Rx] Pioglitazone [Actos] 15 mg PO 0800 365 Days tablet 11/20/17 [Rx] Potassium Chloride 10 meq PO BIDWM tab.er.prt 11/20/17 [Rx] cephALEXin [Keflex] 500 mg PO Q8H 5 Days capsule 11/20/17 [Rx] metFORMIN [Glucophage] 1,000 mg PO BIDWM tablet 11/20/17 [Rx] Allergies/Adverse Reactions: 3 Allergy/AdvReac Type Severity Reaction Status Date / Time No Known Allergies Allergy Verified 11/15/17 18:15 Date of admission: 11/16/17 12:47 Primary care physician: PCP NONE - Constitutional Vitals: Temp Pulse Resp BP Pulse Ox 97.4 F L 94 20 160/95 96 11/20/17 14:14 11/20/17 14:14 11/20/17 14:14 11/20/17 14:14 11/20/17 14:14 - Patient Status Disposition: Transfer SNF - Discharge Instructions Follow Up With: NONE,PCP [Primary Care Provider] - 1 week - Diet and Activity Activity: as per physical therapy Diet: diabetic diet - VTE Reasons for not Prescribing Prophylaxis: Treatment not Indicated - Low risk for VTE Documentation of Mechanical Device: Graduated compression elastic hosiery
--- NOTE | 2017-11-20 14:53 | Physician Discharge Referral ---
ExtendedCare Referral Info Transfer To: [facility] Provider in Charge: Jose Provider in Charge after Transfer: PCP - Diagnosis (1) Cellulitis Priority: Primary Status: Acute (2) DM type 2 (diabetes mellitus, type 2) Priority: Secondary Status: Chronic (3) Anemia Priority: Secondary Status: Acute (4) Hypertension Priority: Secondary Status: Chronic (5) Edema Priority: Secondary Status: Acute Prognosis: Good Aware of Diagnosis: Patient Aware of Prognosis: Patient - Transfer Medications Prescriptions: Bumetanide [Bumex] 1 mg PO DAILY 365 Days tablet cephALEXin [Keflex] 500 mg PO Q8H 5 Days capsule Glimepiride [Amaryl] 8 mg PO DAILY 365 Days tablet Pioglitazone [Actos] 15 mg PO 0800 365 Days tablet Home Medications: Ascorbic Acid [Vitamin C] 500 mg PO 0630 30 Days tablet 11/20/17 [Rx] Bumetanide [Bumex] 1 mg PO DAILY 365 Days tablet 11/20/17 [Rx] Ferrous Sulfate 325 mg PO 0630 30 Days tablet 11/20/17 [Rx] Glimepiride [Amaryl] 8 mg PO DAILY 365 Days tablet 11/20/17 [Rx] Lactobacillus [Culturelle] 1 each PO BID 5 Days cap.sprink 11/20/17 [Rx] Lisinopril [Zestril] 40 mg PO DAILY tablet 11/20/17 [Rx] Metoprolol XL (24 HR) Succ [Toprol Xl] 50 mg PO DAILY tab.er.24h 11/20/17 [Rx] Pioglitazone [Actos] 15 mg PO 0800 365 Days tablet 11/20/17 [Rx] Potassium Chloride 10 meq PO BIDWM tab.er.prt 11/20/17 [Rx] cephALEXin [Keflex] 500 mg PO Q8H 5 Days capsule 11/20/17 [Rx] metFORMIN [Glucophage] 1,000 mg PO BIDWM tablet 11/20/17 [Rx] Allergies/Adverse Reactions: 3 Allergy/AdvReac Type Severity Reaction Status Date / Time No Known Allergies Allergy Verified 11/15/17 18:15 - Respiratory Orders Smoking Cessation: Smoking cessation has been advised. For more information, call the [place] Tobacco Quit Line at 4-832-QJIV-NOW. - Lab Orders Lab Orders: Other (include drug levels w/frequency) (CBC with differential, BMP , magnesium, BN peptide in 1 week) - Mobility Orders Ambulate - Rehabiliation Orders Rehab Potential: Good Rehab Orders: Evaluation for Physical Therapy, Evaluation for Occupational Therapy - Diet Orders No Concentrated Sweets CERTIFICATION: I certify that the transfer of the above named patient to an Extended Care Facility is necessary for the continuing treatment of the diagnosis listed. The above information is true and accurate reflection of patient's current condition. Confidential - Redisclosure prohibited without a patient's written consent.
== END 2017-11-20 16:44 | DRG 603 ==
LOC: INPPIK 15:14 → EMEROOPIK 15:14 → INPPIK 20:21
PROVIDERS: ADMIT Internal Medicine; ATTEND Internal Medicine